=== PATIENT | female | born 2000 | race Caucasian/White ===

== ENCOUNTER 2019-03-13 20:43 | Emergency (ER) | payer MEDICAID, OTHER ==
[2019-03-13] MEDS ORDERED: HYDROmorphone HCL INJ 2 MG/ML VIAL IV ONE (22:53)
[2019-03-13] MEDS ORDERED: SODIUM CHLORIDE 0.9% 1000ML 1,000 ML IVS PRN (22:53)
[2019-03-13] MEDS ORDERED: SODIUM CHLORIDE 0.9% (FLUSH) 10 ML SYG IV PRN (22:53)
[2019-03-13] MEDS ORDERED: PROCHLORPERAZINE INJ 10 MG/2 ML VIAL IV ONE (22:55)
--- NOTE | 2019-03-14 00:06 | ED.PDOC ---
History of Present Illness - General Chief Complaint: Fever Stated Complaint: fever, low back pain Time Seen by Provider: 03/13/19 22:52 Source: patient, RN notes reviewed, Vital Signs reviewed, family - Other Exam Limitations: no limitations Additional Information: patient is a 18-year-old white female who presents with complaints of back pain, and fever starting this a.m. Street of thalamic cancer that at this time is not being operated on, receiving chemotherapy or radiation therapy. Patient complains of fever, chills, nausea and body aches. Patient denies any chest pain, shortness of breath, urea, headache or blurry vision.. Flank pain is throbbing in nature, waxes and wanes, worse with palpation or lying on her back, better lying on her side. The dysuria is burning in nature. Nothing makes it better. 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 Denies: cough, short of breath, wheezing Cardiology: States: no symptoms reported Gastrointestinal/Abdominal: States: see HPI, abdominal pain - suprapubic, nausea . Denies: diarrhea, vomiting Genitourinary: States: see HPI, dysuria Musculoskeletal: States: muscle stiffness. Denies: neck pain Skin: States: no symptoms reported Neurological: States: no symptoms reported, see HPI All other Systems: Reviewed and Negative Past Medical History (General) - Patient Medical History Hx Thyroid Disease: Yes Hx Diabetes: No Surgical History: tonsillectomy - Vaccination History Immunizations Up to Date: Yes - Female History Patient is a Female of Child Bearing Age (10 -59 yrs old): Yes Patient : No - Triage Comment ED Triage Comment: Fever, pain across lower back Family Medical History - Family History Mother Family History: Unknown Physical Exam - Physical Exam General Appearance: Alert, Anxious, Obvious distress, Obese, Well Developed, Well Groomed, Well Nourished Eye Exam: bilateral normal ENT Exam: normal ENT inspection, pharynx normal, other - pharynx normal except for dry mucous membranes. Neck: non-tender, full range of motion, supple, normal inspection, trachea midline Respiratory: chest non-tender, lungs clear, normal breath sounds, no respiratory distress, no accessory muscle use Cardiovascular/Chest: normal peripheral pulses, no edema, no gallop, no murmur, tachycardia Gastrointestinal/Abdominal: normal bowel sounds, soft, tenderness - suprapubic, other - bilateral CVAT, moderate. 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 Plan on discharge home at this time. He shouldn't is strep positive and will be treated with Bicillin LA and Augmentin 3 days. Discussed the plan of care patient and her family and they voice understanding and agreement. Ruben Brennan M.D. #[id number] - Results/Orders Results/Orders: 03/13/19 22:53 IV Care:Saline Lock per Protoc QSHIFT Sodium Chloride 0.9% (Flush) [Saline Flush Syringe] 10 ml IV PRN PRN Sodium Chloride 0.9% 1000ML [Ns 1000 ml] 1,000 ml IVS .ONE 03/13/19 23:21 BLOOD CULTURE Stat Laboratory Results - last 24 hr 03/13/19 03/13/19 03/13/19 23:21 23:21 23:21 WBC 16.4 H RBC 4.85 Hgb 13.8 Hct 41.1 MCV 84.8 MCH 28.5 MCHC 33.6 RDW 13.1 Plt Count 282 MPV 9.2 Absolute Neuts (auto) 15.40 H Absolute Lymphs (auto) 0.40 L Absolute Monos (auto) 0.40 Absolute Eos (auto) 0.00 Absolute Basos (auto) 0.10 Neutrophils % 94.1 H Lymphocytes % 2.7 L Monocytes % 2.7 Eosinophils % 0.0 L Basophils % 0.5 Sodium 135 Potassium 3.7 Chloride 103 Carbon Dioxide 20 L Anion Gap 15.7 BUN 11 Creatinine 0.86 BUN/Creatinine Ratio 12.8 Random Glucose 116 H Serum Osmolality 270.5 L Calcium 9.6 Serum HCG, Qual Negative Urine Color Urine Appearance Urine pH Ur Specific [place] Urine Protein Urine Glucose (UA) Urine Ketones Urine Blood Urine Nitrite Urine Bilirubin Urine Urobilinogen Ur Leukocyte Esterase Urine RBC Urine WBC Ur Epithelial Cells Amorphous Sediment Urine Bacteria 03/13/19 23:38 WBC RBC Hgb Hct MCV MCH MCHC RDW Plt Count MPV Absolute Neuts (auto) Absolute Lymphs (auto) Absolute Monos (auto) Absolute Eos (auto) Absolute Basos (auto) Neutrophils % Lymphocytes % Monocytes % Eosinophils % Basophils % Sodium Potassium Chloride Carbon Dioxide Anion Gap BUN Creatinine BUN/Creatinine Ratio Random Glucose Serum Osmolality Calcium Serum HCG, Qual Urine Color Yellow Urine Appearance Clear Urine pH 7.0 Ur Specific [place] 1.015 Urine Protein Negative Urine Glucose (UA) Negative Urine Ketones Negative Urine Blood Trace-lysed H Urine Nitrite Negative Urine Bilirubin Negative Urine Urobilinogen 0.2 Ur Leukocyte Esterase Negative Urine RBC 0 Urine WBC 0-1 Ur Epithelial Cells 0-1 Amorphous Sediment Trace Urine Bacteria Rare CT ABDOMEN PELVIS WITHOUT IV CONTRAST Exam date: 03/13/2019 10:53 PM CDT Comparison: None Indication: MAIN Technique: Multiple helical axial images were obtained through the abdomen and pelvis without intravenous contrast. Sagittal and coronal reformatted images are reviewed as well. All CT scans at this facility use dose modulation, iterative reconstruction, and/or weight-based dosing when appropriate to reduce radiation dose to as low as reasonably achievable. Findings: Lung bases: Unremarkable. Liver: Homogenous attenuation is demonstrated. Gallbladder/biliary: Gallbladder appears unremarkable. No calcified gallstones. No evidence of biliary ductal dilatation. Pancreas: Unremarkable. Spleen: Unremarkable. Adrenals: Unremarkable. Kidneys and ureters: No evidence of renal or ureteral stones. No hydronephrosis. Bladder: Unremarkable. Pelvic organs: A 2 cm rounded fat density with tiny associated calcification the left ovary is demonstrated compatible with a dermoid. Bowel: No evidence of bowel obstruction. No bowel wall thickening. Appendix appears unremarkable. Peritoneum: No free air. There is a trace amount of nonspecific free fluid in the pelvis. Lymph nodes: Unremarkable. Vasculature: Unremarkable. Soft tissues: Unremarkable. Bones: No acute fracture. Small central posterior disc protrusion at L4-L5 noted. Impression: 1. No evidence for an acute process within the abdomen or pelvis. 2. Small left ovarian dermoid. Electronically signed by: Kentrell Chase MD 03/14/2019 12:36 AM CDT Pt is strep + Departure - Departure Clinical Impression: Strep pharyngitis, Fever and chills, Dehydration Time of Disposition: 02:41 Disposition: Discharge to Home or Self Care Condition: Good Departure Forms: ED Discharge - Pt. Copy, Patient Portal Self Enrollment Instructions: Strep Throat (DC) Referrals: LINO BENSON [Primary Care Provider] - 1-2 Weeks Prescriptions: Amoxicillin & Pot Clavulanate [Augmentin Tab] 875 mg PO BID #6 tab Home Medications: Ambulatory Orders Gabapentin 900 mg PO TID 03/13/19 Rizatriptan Benzoate [Maxalt] 10 mg PO PRN 03/13/19 Thyroid [Nature-Throid] 65 mg PO DAILY 03/13/19 Amoxicillin & Pot Clavulanate [Augmentin Tab] 875 mg PO BID #6 tab 03/14/19
--- NOTE | 2019-03-14 00:37 | CT ---
CT ABDOMEN PELVIS WITHOUT IV CONTRAST Exam date: 03/13/2019 10:53 PM CDT Comparison: None Indication: MAIN Technique: Multiple helical axial images were obtained through the abdomen and pelvis without intravenous contrast. Sagittal and coronal reformatted images are reviewed as well. All CT scans at this facility use dose modulation, iterative reconstruction, and/or weight-based dosing when appropriate to reduce radiation dose to as low as reasonably achievable. Findings: Lung bases: Unremarkable. Liver: Homogenous attenuation is demonstrated. Gallbladder/biliary: Gallbladder appears unremarkable. No calcified gallstones. No evidence of biliary ductal dilatation. Pancreas: Unremarkable. Spleen: Unremarkable. Adrenals: Unremarkable. Kidneys and ureters: No evidence of renal or ureteral stones. No hydronephrosis. Bladder: Unremarkable. Pelvic organs: A 2 cm rounded fat density with tiny associated calcification the left ovary is demonstrated compatible with a dermoid. Bowel: No evidence of bowel obstruction. No bowel wall thickening. Appendix appears unremarkable. Peritoneum: No free air. There is a trace amount of nonspecific free fluid in the pelvis. Lymph nodes: Unremarkable. Vasculature: Unremarkable. Soft tissues: Unremarkable. Bones: No acute fracture. Small central posterior disc protrusion at L4-L5 noted. Impression: 1. No evidence for an acute process within the abdomen or pelvis. 2. Small left ovarian dermoid. Electronically signed by: Kentrell Chase MD 03/14/2019 12:36 AM CDT
[2019-03-14] MEDS ORDERED: ACETAMINOPHEN 500 MG TAB PO ONE (00:43)
[2019-03-14] MEDS ORDERED: SODIUM CHLORIDE 0.9% 1000ML 1,000 ML IVS ONE (01:34)
[2019-03-14] MEDS ORDERED: PENICILLIN BENZATHINE 1.2 MU 1.2 MU/2 ML SYG IM ONE (02:15)
[2019-03-14] MEDS ORDERED: AMOXICILLIN & POT CLAVULANATE 875 MG TAB PO ONE (02:16)
[2019-03-14 02:55] VITALS: BP 139/93; TEMP 100.2; O2SAT 99
== END 2019-03-14 02:55 | disposition home or self-care (01) ==
LOC: ER 20:43
DX: J02.0 Streptococcal pharyngitis (principal); E86.0 Dehydration; R10.30 Lower abdominal pain, unspecified; M54.5 Low back pain; E07.9 Disorder of thyroid, unspecified
CPT/HCPCS: 36415; 74176; 80048; 81001; 84703; 85025; 87040; 87502; 87880; J0561; J0780; J1170; J7030